=== PATIENT | male | born 1950 ===

== ENCOUNTER 2021-10-22 16:23 | Emergency (ER) | payer MEDICARE, OTHER ==
[~2021-10-22 16:23] MED LIST: EPINEPHrine 1:10,000 1 MG/10 ML Syringe IVPUSH ONE; Midazolam 1 MG/ML 2 ML SDV ONE; Midazolam 50 MG in Sodium Chloride 0.9% 40 ML IV SCH; Norepinephrine 4 MG in Dextrose 5% in Water 246 ML IV SCH; Sodium Chloride 0.9% 1,000 ML IV ONE; Sodium Chloride 0.9% 10 ML Syringe FLUSH PRN
[2021-10-22 16:24] LABS: O2 DELIVERY DEVICE VENTILATOR
[2021-10-22] MEDS ORDERED: Sodium Chloride 0.9% 1,000 ML IV ONE (16:24)
[2021-10-22 16:25] LABS: ALLEN TEST PERFORMED; BASE EXCESS ARTERIAL -14 mmol/L ((-2)-(+3)); BICARBONATE,ARTERIAL 13.8 mmol/L (22-26); O2 SATURATION ARTERIAL 98 % (95-100); PCO2 ARTERIAL 35 mmHg (35-45); PO2 ARTERIAL 127 mmHg (70-100)
[2021-10-22 16:26] LABS: ANION GAP 25.9 mEq/L (7-13); CHLORIDE,CL 106 mmol/L (98-107); ESTIMATED GFR 43 mL/min (>=60); SODIUM,NA 142 mmol/L (136-145)
[2021-10-22] MEDS ORDERED: Midazolam 1 MG/ML 2 ML SDV ONE (16:29)
[2021-10-22] MEDS ORDERED: fentaNYL 500 MCG in Sodium Chloride 0.9% 50 ML IV SCH ×4 (16:30)
[2021-10-22] MEDS: Midazolam 1 MG/ML 2 ML SDV IVPUSH ONE ×2 (16:32→16:50)
[2021-10-22] MEDS ORDERED: Iopamidol 755 Mg/ML 100 ML Bottle IVPUSH ONE (16:44)
[2021-10-22] MEDS ORDERED: Piperacillin/Tazobactam 4.5 GM in Sodium Chloride 0.9% 100 ML IV ONE (17:38)
== END 2021-10-22 19:15 ==
LOC: EDBD → DL.ED 16:23
DX: I46.9 Cardiac arrest, cause unspecified (principal)
CPT/HCPCS: 31500; 36415; 36600; 36680; 51702; 70450; 71045; 71260; 80053; 80307; 82803; 82947; 83605; 83735; 83880; 84443; 84484; 85025; 85610; 86140; 93005; 93010; 96365; 96366; 96368; 99285; 99285-25; J0171; J2250; J2543; J3010; J7030; J7060; Q9967; U0002